=== PATIENT | female | born 1990 | race Caucasian/White ===

== ENCOUNTER 2025-02-06 09:07 | Emergency (ER) | payer BC ==
[2025-02-06 10:36] LABS: APPEARANCE,URINE CLEAR (CLEAR); GLUCOSE,URINE NEGATIVE (NEGATIVE); OCCULT BLOOD,URINE NEGATIVE (NEGATIVE)
[2025-02-06 11:05] LABS: BASE EXCESS VENOUS 0.5 mm/L; BICARBONATE,VENOUS 23.6 mmol/L; O2 SATURATION VENOUS 63.7; OXYHEMOGLOBIN 61.7 %; PCO2 VENOUS 34.8 mm/Hg; PH,VENOUS 7.445 (7.350-7.450); TOTAL HEMOGLOBIN 14.3 g/dL (12.0-16.0)
[2025-02-06 11:07] LABS: BASOPHILS ABSOLUTE AUTO 0.03 K/uL (0.00-0.10); BASOPHILS PERCENT AUTO 0.3 % (0.1-1.3); EOSINOPHILS ABSOLUTE AUTO 0.04 K/uL (0.00-0.40); EOSINOPHILS PERCENT AUTO 0.4 % (0.0-5.4); IMMATURE GRAN PERCENT AUTO 0.2 % (0.0-0.7); LYMPHOCYTES ABSOLUTE AUTO 1.28 K/uL (0.8-3.3); LYMPHOCYTES PERCENT AUTO 14.2 % (11.4-47.7); MONOCYTES ABSOLUTE AUTO 0.47 K/uL (0.20-0.90); MONOCYTES PERCENT AUTO 5.2 % (3.3-12.6); NEUTROPHILS ABSOLUTE AUTO 7.19 K/uL (1.0-7.6); NEUTROPHILS PERCENT AUTO 79.7 % (40.0-78.1); PLATELET COUNT,PLT 269 K/uL (130-375); RED BLOOD CELL COUNT 4.65 M/uL (3.77-5.24); WHITE BLOOD CELL COUNT,WBC 9.0 K/uL (3.2-11.0)
[2025-02-06 11:20] LABS: IMMATURE GRAN ABSOLUTE AUTO 0.02 K/uL (0.00-0.23)
[2025-02-06 11:21] LABS: PO2 VENOUS 34.8 mm/Hg
[2025-02-06 11:40] LABS: A/G RATIO 1.1 (1.2-2.2); ALANINE AMINOTRANSFERASE,ALT 18 U/L (12-78); ASPARTATE AMNIOTRANSFERASE,AST 14 U/L (15-37); BILIRUBIN TOTAL 0.5 mg/dL (0.2-1.0); BLOOD UREA NITROGEN,BUN 8 mg/dL (7-18); CARBON DIOXIDE,CO2 25 mmol/L (21-32); CHLORIDE,CL 107 mmol/L (100-108); CREATININE 0.7 mg/dL (0.6-1.0); EST CRCL DRUG DOSING (CG) 107.01 mL/min; ESTIMATED GFR 117 mL/min (>60); GLUCOSE RANDOM 95 mg/dL (74-106); POTASSIUM,K 3.9 mmol/L (3.6-5.2); PROTEIN TOTAL,TP 7.4 g/dL (6.4-8.2); SODIUM,NA 142 mmol/L (140-148)
[2025-02-06 11:59] LABS: TROPONIN I HIGH SENSITIVITY 2.9 pg/mL (<=60.3)
== END 2025-02-06 13:18 | disposition home or self-care (01) ==
LOC: JP.ED 09:07
DX: R42 Dizziness and giddiness (principal); F41.9 Anxiety disorder, unspecified; Z87.891 Personal history of nicotine dependence
CPT/HCPCS: 36415; 71045; 71045-26; 80053; 80307; 81003; 81025; 82803; 83735; 84484; 85025; 85379; 86140; 93005; 93010; 99284